=== PATIENT | male | born 1965 | race Caucasian/White ===

== ENCOUNTER 2021-05-12 14:57 | Emergency (ER) | payer OTHER ==
[~2021-05-12] VITALS: Ht 177.8 cm; Wt 101.7 kg
[2021-05-12 17:19] LABS: BILIRUBIN,URINE NEGATIVE (NEG); CLARITY,URINE CLEAR; COLOR,URINE YELLOW; NITRITE,URINE NEGATIVE (NEG); PH,URINE 5.5 (<5.0-8.0); PROTEIN,URINE NEGATIVE (NEG-TRACE)
--- NOTE | 2021-05-12 17:20 | PHYS DOC ---
Past Medical History Past Medical History: Hypertension (NELSY MONROE DO) Past Surgical History: No Surgical History (NELSY MONROE DO) Smoking Status: Never Smoker Alcohol Use: None Drug Use: None (NELSY MONROE DO) General Adult EDM: Chief Complaint: FLANK PAIN HPI: HPI: 36-year-old male presents to the emergency department complaining of abdominal pain in the left side for the past 5 days. He reports his pain is intermittent, gradually getting worse, does not radiate from the left side of his abdomen, associated with some nausea without vomiting or diarrhea. He has not noticed any stool changes or blood in his stool. He reports that he had a similar bout of pain recently and was evaluated twice with plain films of the abdomen but has never had a CT performed. He was told that he may have diverticulitis. He has never had surgery in his abdomen before. He admits that he feels dehydrated s ubjectively, complains of darker than normal urine. The patient denies fever, chills, chest pain, shortness of breath, abdominal pain, cough, recent trauma, or any other complaints. (NELSY MONROE DO) Review of Systems: Review of Systems: Review of systems is otherwise negative except for what was mentioned in HPI (NELSY MONROE DO) Heart Score: C/O Chest Pain: No (NELSY MONROE DO) Current Medications: Current Medications Medications (Trade) Dose Ordered Sig/Juan Start Time Stop Time Status Last Admin Dose Admin Fentanyl Citrate (Fentanyl 2ml Vial) 75 mcg 1X ONCE 05/12/21 17:15 05/12/21 17:16 UNV Ringer's Solution 1,000 ml @ 1,000 mls/hr Q1H 05/12/21 17:15 05/12/21 18:14 UNV (NELSY MONROE DO) Physical Exam: PE: Constitutional: No acute distress, non-toxic appearance. HENT: Atraumatic, bilateral external ears normal, nose normal. Eyes: PERRLA, EOMI, conjunctiva normal, no discharge. Neck: Normal range of motion, supple, no stridor. Cardiovascular: Heart rate regular rhythm. 2+ radial pulses Lungs & Thorax: No respiratory distress, symmetrical expansion. Abdomen: Soft, left upper quadrant and left lower quadrant tenderness to palpation without guarding or rebound Skin: Warm, dry. Extremities: No tenderness, no cyanosis, ROM intact, no edema. Neurologic: Alert and oriented X 3, normal motor function, normal sensory function, no focal deficits noted. Non ataxic gait. GCS 15. Psychologic: Affect normal, judgment normal, mood normal. (NELSY MONROE DO) Current Patient Data: Vital Signs: Vital Signs Date Time Temp Pulse Resp B/P (MAP) Pulse Ox O2 Delivery O2 Flow Rate FiO2 05/12/21 16:46 98.5 62 12 169/131 (144) 98 Room Air 98.5 (FERNELSY Chano GALEANA) Radiology/Procedures: Impression: HISTORY: Left-sided abdominal pain. History of diverticulitis. Abdomen findings: Mild dependent groundglass densities at the lung bases likely atelectasis. Lumbar disc disease with disc osteophytes and severe spinal canal stenoses at several levels. Hypodense liver likely fatty. There is left renal edema and delayed left renal nephrogram and moderate hydronephrosis renal pelvis diameter 2.5 cm associated with a oblong ureteropelvic junction obstructing 8 mm calculus on image 43. Smaller nonobstructing left renal lower pole calculus also present. Right kidney, adrenal glands, pancreas, spleen, gallbladder unremarkable. Hypodensity liver likely fatty. Appendix is negative. No obstruction or inflation the GI tract. No abdominal fluid or adenopathy. Pelvis findings: Bladder, prostate, rectum and bones are unremarkable. IMPRESSION: 1. Moderate left renal hydronephrosis, renal edema and delayed nephrogram associated with an 8 mm ureteropelvic junction obstructing calculus. 2. Appendix is negative. 3. Other incidental findings as described above. (JOAQUIN FIELD I DO) Course & Med Decision Making: Course & Med Decision Making Labs and CT scan were ordered along with nausea medicine and pain medicine. Patient was signed out to oncoming physician Dr. Field at [address] and diagnostics (NELSY MONROE DO) Course & Med Decision Making Assumed care at shift change--position pending labs, radiologic imaging and reevaluation. Patient's creatinine within normal limits. Patient's urine without signs of infection. CT imaging shows an 8 mm stone at the UPJ. Patient's pain was treated with morphine with improvement. He also received a dose of Flomax. I discussed hospitalization versus outpatient treatment. Advised patient and family [facility] does not have a urologist so patient would be transferred to another facility. Patient states he has previously had kidney stones is has seen a urologist in the past. Patient made a decision to try outpatient management with follow-up. I discharge patient home with Flomax and hydrocodone. I did provide patient with a list of referring urologist that have privileges at our [facility]. Advised the patient if pain gets worse, he starts have any fevers or chills, nausea vomiting or any concerns that he should return to this or any ER for reevaluation and further treatment. Otherwise patient must follow-up with a urologist. (JOAQUIN FIELD I DO) Departure Departure Impression: Primary Impression: Kidney stone Disposition: HOME / SELF CARE / HOMELESS Condition: STABLE Patient Instructions: Kidney Stones Additional Instructions: [facility] [place] [address] [address] [place] [address] [place] [address] [place] [address] [facility], [address] [place] [address] [facility] / [place] [address] Scripts Hydrocodone/Acetaminophen (Hydrocodone-Acetamin 5-325 mg) 1 Each Tablet 1 EACH PO Q4-6HRS, #20 TAB Prov: JOAQUIN FIELD DO 05/12/21 Tamsulosin Hcl (FLOMAX) 0.4 Mg Cap.er.24h 1 CAP PO DAILY, #30 CAP 11 Refills Prov: JOAQUIN FIELD DO 05/12/21 NELSY MONROE DO May 12, 2021 17:20 JOAQUIN FIELD DO May 12, 2021 21:37
[2021-05-12 17:25] LABS: BACTERIA,URINE MODERATE /HPF (0-FEW); RBC,URINE 0 /HPF (0-2)
[2021-05-12 18:23] LABS: BASO % 0 % (0-3); EOS % 0 % (0-3); HEMATOCRIT 42.6 % (39.0-53.0); HEMOGLOBIN 14.5 g/dL (13.0-17.5); LYMPH # 1.1 x10^3/uL (1.0-4.8); LYMPH % 11 % (24-48); MEAN CORPUSCULAR HEMOGLOBIN 31 pg (25-35); MEAN CORPUSCULAR HGB CONC 34 g/dL (31-37); MEAN CORPUSCULAR VOLUME 90 fL (79-100); MONO # 0.6 x10^3/uL (0.0-1.1); MONO % 6 % (0-9); NEUT # 8.8 x10^3/uL (1.8-7.7); NEUT % 83 % (31-73); PLATELET COUNT 245 x10^3/uL (140-400); RED BLOOD COUNT 4.73 x10^6/uL (4.30-5.70); RED CELL DISTRIBUTION WIDTH 13.9 % (11.5-14.5); WHITE BLOOD COUNT 10.6 x10^3/uL (4.0-11.0)
[2021-05-12] MEDS: IV RINGERS,LACTATED 1000ML 1,000 ML IV SCH (18:25)
[2021-05-12] MEDS: fentaNYL PF VIAL 100 MCG/2 ML VIAL IVP ONE (18:25)
[2021-05-12] MEDS: ONDANSETRON PF 4 MG/2 ML VIAL. IVP ONE (18:25)
[2021-05-12 18:31] LABS: CALCIUM 9.1 mg/dL (8.5-10.1); CREATININE 1.3 mg/dL (0.7-1.3); GFR 56.9; POTASSIUM 4.5 mmol/L (3.5-5.1)
[2021-05-12 18:37] LABS: ALBUMIN 3.8 g/dL (3.4-5.0); ALBUMIN/GLOBULIN RATIO 0.9 (1.0-1.7); TOTAL BILIRUBIN 1.1 mg/dL (0.2-1.0); TOTAL PROTEIN 8.2 g/dL (6.4-8.2)
[2021-05-12] MEDS: IOHEXOL 300 MG/ML 100ML VIAL. IV ONE (19:00)
[2021-05-12] MEDS ORDERED: CONTRAST GIVEN. MC PRN (19:00)
--- NOTE | 2021-05-12 19:47 | RAD ---
CT abdomen and pelvis with contrast PQRS statement: CT scans at this facility use dose reduction including either automated exposure cont rol, iterative reconstructions, and /or weight based radiation dosing via mA and kV modification when appropriate to reduce radiation dose to as low as reasonably achievable. Contrast: 75 mL of opaque 300 intravenous contrast. HISTORY: Left-sided abdominal pain. History of diverticulitis. Abdomen findings: Mild dependent groundglass densities at the lung bases likely atelectasis. Lumbar d isc disease with disc osteophytes and severe spinal canal stenoses at several levels. Hypodense liver likely fatty. There is left renal edema and delayed left renal nephrogram and moderate hydronephrosi s renal pelvis diameter 2.5 cm associated with a oblong ureteropelvic junction obstructing 8 mm calcu icelo on image 43. Smaller nonobstructing left renal lower pole calculus also present. Right kidney, ad renal glands, pancreas, spleen, gallbladder unremarkable. Hypodensity liver likely fatty. Appendix is negative. No obstruction or inflation the GI tract. No abdominal fluid or adenopathy. Pelvis findings: Bladder, prostate, rectum and bones are unremarkable. IMPRESSION: 1. Moderate left renal hydronephrosis, renal edema and delayed nephrogram associated with an 8 mm ure teropelvic junction obstructing calculus. 2. Appendix is negative. 3. Other incidental findings as described above. Electronically signed by: Markos Shields MD (05/12/2021 7:45 PM) [facility]
[2021-05-12] MEDS: MORPHINE SULFATE 4 MG/ML INJ. IVP ONE (21:14)
[2021-05-12] MEDS: TAMSULOSIN 0.4 MG CAP.ER.24H. PO ONE (21:14)
[2021-05-12] MEDS ORDERED: HYDR-2759 PO (21:27)
[2021-05-12] MEDS ORDERED: TAMS0.4C97 PO (21:27)
[2021-05-12 21:50] VITALS: BP 136/76
== END 2021-05-12 21:50 | disposition home or self-care (01) ==
LOC: ER 14:57
DX: N13.2 Hydronephrosis with renal and ureteral calculous obstruction (principal); I10 Essential (primary) hypertension
CPT/HCPCS: 36415; 74177; 80053; 81001; 83690; 85025; 87086; 96361; 96374; 96375; 99285; J2270; J2405; J3010; J7120; Q9967